=== PATIENT | male | born 1965 | race Caucasian/White ===

== ENCOUNTER 2016-05-21 21:04 | Emergency (ER) | payer OTHER ==
[2016-05-21] MEDS ORDERED: NS 1,000 ML IV ONE (21:25)
[2016-05-21 21:54] LABS: % IMMATURE GRANULYOCYTES 0.2 % (0.0-1.1); ABSOLUTE IMMATURE GRANULOCYTES 0.01 10^3/uL (0.00-0.10); ADD DIFF? NO; ADD MORPH? NO; ADD SCAN? NO; ATYPICAL LYMPHOCYTE FLAG 20 (0-99); FRAGMENT RBC FLAG 0 (0-99); HEMATOCRIT 42.4 % (40.0-51.0); HEMOGLOBIN 15.3 g/dL (13.7-17.5); LEFT SHIFT FLG 0 (0-99); LIPEMIA HEMOLYSIS FLAG 90 (0-99); MEAN CELL HEMOGLOBIN 30.9 pg (27.9-34.1); MEAN CELL HEMOGLOBIN CONCENTR. 36.1 g/dL (32.4-36.7); MEAN CELL VOLUME 85.7 fL (81.5-99.8); MEAN PLATELET VOLUME 9.8 fL (8.7-11.7); PLATELET CLUMPS FLAG 0 (0-99); PLATELET COUNT 260 10^3/uL (150-400); RED BLOOD CELL COUNT 4.95 10^6/uL (4.40-6.38); RED CELL DISTRIBUTION WIDTH 12.3 % (11.5-15.2)
[2016-05-21 22:06] LABS: ANION GAP 11 mEq/L (8-16); CALCIUM 9.7 mg/dL (8.5-10.4); CARBON DIOXIDE 24 mEq/l (22-31); CHLORIDE 107 mEq/L (97-110); CREATININE 1.1 mg/dL (0.7-1.3); GLOMERULAR FILTRATION RATE > 60; GLUCOSE 100 mg/dL (70-100); POTASSIUM 4.2 mEq/L (3.5-5.2); SODIUM 142 mEq/L (134-144)
--- NOTE | 2016-05-21 22:28 | EDPHY ---
H & P Stated Complaint: cough, fatigue, confusion HPI/ROS: Chief complaint: Cough History of present illness: This is a 51-year-old male who presents to the emergency department for evaluation of a cough. Patient states he has been sick for the last 3 weeks. States after the first week he saw a doctor and was diagnosed with pneumonia and placed on amoxicillin. He was not feeling better and saw another doctor who placed him on azithromycin. He states after that most symptoms resolved but his cough persists. He also continues to feel somewhat tired. This evening he thought he was confused. He denies other associated signs or symptoms: No fevers or chills, no difficulty breathing. Review of systems: A 10 point review of systems was obtained and other than described above was negative - Personal History Current Tetanus/Diphtheria Vaccine: Unsure Current Tetanus Diphtheria and Acellular Pertussis (TDAP): Unsure - Medical/Surgical History Hx Asthma: No Hx Chronic Respiratory Disease: No Hx Diabetes: No Hx Cardiac Disease: No Hx Renal Disease: No Hx Cirrhosis: No Hx Alcoholism: No Hx HIV/AIDS: No Hx Splenectomy or Spleen Trauma: No Other PMH: PNA, knee surgery - Social History Smoking Status: Never smoked - Physical Exam Exam: General Appearance: Alert, nontoxic. Eyes: Pupils equal and round no pallor or injection. ENT, Mouth: Tympanic membranes, external auditory canals, external ears and surrounding soft tissue including over the mastoids are unremarkable. Nasopharynx is not injected. There is no rhinorrhea. Oropharynx is not injected. There is no edema. There is no exudate. There is no asymmetry. The uvula is midline. No elevation of the tongue. There is no hoarseness, no drooling, no trismus, no stridor. Respiratory: There are no retractions, lungs are clear to auscultation. Cardiovascular: Regular rate and rhythm. Gastrointestinal: Abdomen is soft and non tender, no masses, bowel sounds normal. Neurological: Alert and oriented x4. Cranial nerves 2-12 grossly intact. Strength and sensation intact and symmetrical. Ambulating without difficulty. Skin: Warm and dry, no rashes. Musculoskeletal: Neck is supple non tender. Extremities are symmetrical, full range of motion. Psychiatric: Patient is oriented X 3, there is no agitation. Constitutional: Initial Vital Signs Temperature (C) 36.7 C 05/21/16 21:11 Heart Rate 83 05/21/16 21:11 Respiratory Rate 16 05/21/16 21:11 Blood Pressure 168/110 H 05/21/16 21:11 O2 Sat (%) 99 05/21/16 21:11 O2 Delivery Mode Room Air Allergies/Adverse Reactions: No Known Allergies Allergy (Unverified 05/21/16 21:10) Home Medications: Medication Instructions Recorded Abilify 05/21/16 Adderall 10 MG (*) 05/21/16 Medical Decision Making - Diagnostics Imaging: Chest x-ray negative ED Course/Re-evaluation: Patient seen under the supervision of my secondary supervising physician Dr. Andrea Warren. Patient presents to the emergency department for a persistent cough. He also reports fatigue and this evening some confusion. On presentation he is nontoxic. He is afebrile and vital signs are stable. He is fully alert and oriented. Physical exam is benign. Blood studies and chest x- ray unremarkable. This appears to likely be sequelae from his recent pneumonia. I do believe he is appropriate for discharge home. Home care is discussed. He is asked to follow up with his primary care doctor for recheck. Return precautions are given. Patient voiced understanding and agreement with plan. Differential Diagnosis: Included but not limited to bronchitis, pneumonia, influenza, empyema - Data Points Laboratory Results: Laboratory Results 05/21/16 21:35 05/21/16 21:35 05/21/16 05/21/16 21:35 21:35 WBC 4.51 10^3/uL 10^3/uL (3.80-9.50) RBC 4.95 10^6/uL 10^6/uL (4.40-6.38) Hgb 15.3 g/dL g/dL (13.7-17.5) Hct 42.4 % % (40.0-51.0) MCV 85.7 fL fL (81.5-99.8) MCH 30.9 pg pg (27.9-34.1) MCHC 36.1 g/dL g/dL (32.4-36.7) RDW 12.3 % % (11.5-15.2) Plt Count 260 10^3/uL 10^3/uL (150-400) MPV 9.8 fL fL (8.7-11.7) Neut % (Auto) 42.8 % % (39.3-74.2) Lymph % (Auto) 44.8 % % (15.0-45.0) [place] % (Auto) 8.9 % % (4.5-13.0) Eos % (Auto) 2.4 % % (0.6-7.6) Baso % (Auto) 0.9 % % (0.3-1.7) Nucleat RBC Rel Count 0.0 % % (0.0-0.2) Absolute Neuts (auto) 1.93 10^3/uL 10^3/uL (1.70-6.50) Absolute Lymphs (auto) 2.02 10^3/uL 10^3/uL (1.00-3.00) Absolute Monos (auto) 0.40 10^3/uL 10^3/uL (0.30-0.80) Absolute Eos (auto) 0.11 10^3/uL 10^3/uL (0.03-0.40) Absolute Basos (auto) 0.04 10^3/uL 10^3/uL (0.02-0.10) Absolute Nucleated RBC 0.00 10^3/uL 10^3/uL (0-0.01) Immature Gran % 0.2 % % (0.0-1.1) Immature Gran # 0.01 10^3/uL 10^3/uL (0.00-0.10) Sodium 142 mEq/L mEq/L (134-144) Potassium 4.2 mEq/L mEq/L (3.5-5.2) Chloride 107 mEq/L mEq/L (97-110) Carbon Dioxide 24 mEq/l mEq/l (22-31) Anion Gap 11 mEq/L mEq/L (8-16) BUN 16 mg/dL mg/dL (7-23) Creatinine 1.1 mg/dL mg/dL (0.7-1.3) Estimated GFR > 60 Glucose 100 mg/dL mg/dL (70-100) Calcium 9.7 mg/dL mg/dL (8.5-10.4) Medications Given: Discontinued Medications Sodium Chloride (Ns) 1,000 mls @ 0 mls/hr IV ONCE ONE PRN Reason: Wide Open Stop: 05/21/16 21:26 Last Admin: 05/21/16 21:35 Dose: 1,000 mls Departure - Departure Disposition: Home, Routine, Self-Care Clinical Impression: Cough Condition: Good Instructions: Acute Cough (ED) Additional Instructions: Follow-up with your primary care doctor for recheck this week If symptoms worsen or new symptoms develop return to the emergency department for recheck Referrals: NONE *PRIMARY CARE P,. [Primary Care Provider] - As per Instructions [facility] [Outside] - As per Instructions Kiko Portillo DO [Medical Doctor] - As per Instructions
[2016-05-21 22:41] VITALS: BP 133/85; PULSE 98; RESP 20; TEMP 97.9; O2SAT 95
== END 2016-05-21 22:41 | disposition home or self-care (01) ==
DX: R05 Cough (principal)

== ENCOUNTER 2017-01-21 11:30 | Emergency (ER) | payer OTHER ==
--- NOTE | 2017-01-21 11:48 | EDPHY ---
H & P Stated Complaint: Told to come in by PCP for elevated B/P. Time Seen by Provider: 01/21/17 11:48 HPI/ROS: CHIEF COMPLAINT: Hypertension HISTORY OF PRESENT ILLNESS: The patient was referred to the emergency department when he attempted to establish a new primary care visit. The patient reportedly was seen by his psychiatrist yesterday and had a blood pressure of 165/100. He is not on medication for hypertension. The patient was concerned about the elevated blood pressure today and had some vague symptoms of a fullness in his head which prompted his visit to the ED. He denies any acute headache currently. He has no complaints of chest pain or shortness of breath. The patient is on Adderall for attention deficit hyperactivity disorder. He is also on medications for depression. The patient denies any complaints of chest pain or shortness of breath. He denies any history of syncope or presyncope. REVIEW OF SYSTEMS: A comprehensive 10 point review of systems is otherwise negative aside from elements mentioned in the history of present illness. Source: Patient - Personal History Current Tetanus Diphtheria and Acellular Pertussis (TDAP): Unsure - Medical/Surgical History Hx Asthma: No Hx Chronic Respiratory Disease: No Hx Diabetes: No Hx Cardiac Disease: No Hx Renal Disease: No Hx Cirrhosis: No Hx Alcoholism: No Hx HIV/AIDS: No Hx Splenectomy or Spleen Trauma: No Other PMH: PNA, knee surgery - Social History Smoking Status: Never smoked - Physical Exam Exam: General Appearance: Alert, no distress Eyes: Pupils equal and round no pallor or injection ENT, Mouth: Mucous membranes moist Respiratory: There are no retractions, lungs are clear to auscultation Cardiovascular: Regular rate and rhythm Gastrointestinal: Abdomen is soft and nontender, no masses, bowel sounds normal Neurological: A&O, normal motor function, normal sensory exam, normal cranial nerves Skin: Warm and dry, no rashes Musculoskeletal: Neck is supple nontender Extremities: symmetrical, full range of motion Constitutional: Initial Vital Signs Temperature (C) 37 C 01/21/17 11:38 Heart Rate 78 01/21/17 11:38 Respiratory Rate 16 01/21/17 11:38 Blood Pressure 166/108 H 01/21/17 11:38 O2 Sat (%) 92 01/21/17 11:38 O2 Delivery Mode Room Air Allergies/Adverse Reactions: No Known Allergies Allergy (Unverified 05/21/16 21:10) Home Medications: Medication Instructions Recorded Abilify 05/21/16 Adderall 10 MG (*) 05/21/16 Medical Decision Making - Diagnostics EKG Interpretation: EKG: Complete interpretation has been separately recorded in the [facility] archive. Summary impression: Sinus rhythm, rate 76 ED Course/Re-evaluation: Patient's blood pressure was 140/100 upon arrival. The patient was monitored throughout his stay in the emergency department. Blood pressure is in the 140 to 150 range over 100. The patient has no evidence of an arrhythmia on his EKG. He has no complaints of chest pain or shortness of breath. The patient is noted to be neurologically intact. At this point time I do feel the patient can establish primary care for a blood pressure recheck within the next week. He is advised to return to the emergency department for the development of severe headache, numbness, weakness, chest pain or difficulty breathing. Differential Diagnosis: Differential diagnosis considered includes hypertensive emergency, primary hypertension, medication side effect, arrhythmia Departure - Departure Disposition: Home, Routine, Self-Care Clinical Impression: Hypertension Condition: Good Instructions: Hypertension (ED) Additional Instructions: 1. Please schedule a follow-up appointment with a primary care provider for a blood pressure recheck within the next week. Return to the ED for any severe headache, numbness, weakness, chest pain, difficulty breathing or other concerns. 2. You have been referred to our on-call primary care provider if you are unable to establish an appointment with Dr. Kim in a timely fashion. Referrals: Tana Arevalo MD [Medical Doctor] - As per Instructions
--- NOTE | 2017-01-21 12:13 | CPEKG ---
Heart Rate: 76 RR Interval: 789 P-R Interval: 164 QRSD Interval: 80 QT Interval: 368 QTC Interval: 414 P [place]: 58 QRS [place]: 59 T Wave [place]: 39 EKG Severity - BORDERLINE ECG - EKG Impression: SINUS RHYTHM EKG Impression: PROBABLE LEFT ATRIAL ABNORMALITY Electronically Signed By: Yeyo Sharma 21-Jan-2017 12:49:44
[2017-01-21 12:33] VITALS: O2SAT 96
[2017-01-21 13:14] VITALS: BP 136/101; PULSE 75; RESP 13; TEMP 97.9
== END 2017-01-21 13:14 | disposition home or self-care (01) ==
DX: I10 Essential (primary) hypertension (principal)

== ENCOUNTER → 2017-10-29 | Outpatient (CLI) | payer OTHER | LOC: CIMAGING 08:57 | PROVIDERS: ATTEND Internal Medicine | DX: M54.9 Dorsalgia, unspecified (principal); M51.36 Other intervertebral disc degeneration, lumbar region | CPT/HCPCS: 72100-PO ==